=== PATIENT | female | born 1970 | race Caucasian/White ===

== ENCOUNTER 2017-08-25 10:17 | Emergency (ER) | payer SELFPAY ==
[~2017-08-25] VITALS: Ht 154.9 cm; Wt 48.1 kg
[~2017-08-25 10:17] MED LIST: ACET500T33 PO; HYDR-971 PO; IBUP800T19 PO; METR500T PO; SULF1TAB24 PO; excedrin pm PO
[2017-08-25 10:36] VITALS: BP 116/78
[2017-08-25] MEDS ORDERED: AMOX1TAB61 PO (10:39)
[2017-08-25] MEDS ORDERED: PRED50TA PO (10:39)
--- NOTE | 2017-08-25 10:45 | PHYS DOC ---
Past History Past Medical History: Bronchitis Past Surgical History: Oophorectomy, Other Smoking: Less than 1pk/day Alcohol Use: Sober Drug Use: Cocaine, Methamphetamine Adult General Chief Complaint Chief Complaint: SORE THROAT HPI HPI 46-year-old female presenting the emergency department with sore throat. This started last night. It is a burning sensation in the back of her throat that is nonradiating intermittent and without associated fever or chills. She denies difficulty breathing, drooling, tongue swelling, or restricted range of motion of the neck. Review of systems is negative for chest pain shortness of breath fevers chills neck stiffness headache. All other review of systems is negative unless otherwise noted in history of present illness. ED course: 46 year old female presenting the emergency department today with sore throat. Afebrile here with a normal heart rate. On examination she has swollen tonsils with erythema with minimal exudate. No peritonsillar abscess or deviation of the uvula. Normal range of motion of the neck. Otherwise well- appearing. Able to swallow secretions in the examination room. Heart and lungs are within normal limits. Given the amount of swelling and pretest probability for strep throat we will empirically treat with Augmentin and provided oral corticosteroids for the patient follow-up with her doctor in 2-3 days.The patient has been examined and was not found to have an emergency medical condition. The patient was then discharged home in stable condition. They were to return if their symptoms worsened or if they were concerned for any reason. [id number] discharge instructions and return precautions were given. Patient' s questions were answered to their satisfaction. Patient is comfortable with plan. Review of Systems Review of Systems SEE ABOVE. Allergies Allergies Allergies Coded Allergies Type Severity Reaction Last Updated Verified aspirin Allergy Intermediate pruritus 04/26/15 Yes Physical Exam Physical Exam SEE ABOVE Constitutional: Well developed, well nourished, no acute distress, non-toxic appearance. [] HENT: Normocephalic, atraumatic, bilateral external ears normal, oropharynx moist, see above. Mild anterior lymphadenopathy. Eyes: PERRLA, EOMI, conjunctiva normal, no discharge. [] Neck: Normal range of motion, no tenderness, supple, no stridor. [] Cardiovascular:Heart rate regular rhythm, no murmur [] Lungs & Thorax: Bilateral breath sounds clear to auscultation [] Abdomen: Bowel sounds normal, soft, no tenderness, no masses, no pulsatile masses. [] Skin: Warm, dry, no erythema, no rash. [] Back: No tenderness, no CVA tenderness. [] Extremities: No tenderness, no cyanosis, no clubbing, ROM intact, no edema. [] Neurologic: Alert and oriented X 3, normal motor function, normal sensory function, no focal deficits noted. [] Psychologic: Affect normal, judgement normal, mood normal. [] EKG EKG [] Radiology/Procedures Radiology/Procedures [] Course & Med Decision Making Course & Med Decision Making Pertinent Labs and Imaging studies reviewed. (See chart for details) [] Dragon Disclaimer Dragon Disclaimer This electronic medical record was generated, in whole or in part, using a voice recognition dictation system. Departure Departure: Impression: Primary Impression: Tonsillitis Additional Impression: Acute tonsillitis Disposition: HOME, SELF-CARE Condition: STABLE Referrals: PCP,TRISH (PCP) RAMO MAGALLON MD Patient Instructions: Sore Throat, Tonsillitis Additional Instructions: Thank you for allowing us to participate in your care today. Followup with your primary care physician in 3 days if your symptoms do not improve. Call your Primary Doctor tomorrow and inform them of your visit today. If you do not have a primary care provider you can ask for a list of our primary care providers. Return to the emergency department you have any new or concerning findings. This should be evaluated by the primary care physician and any necessary consulting services for continued management within a few days after discharge. Return to emergency room if you have any new or concerning symptoms including but not limited to fever, chills, nausea, vomiting, intractable pain, any new rashes, chest pain, shortness of air, uncontrolled bleeding, difficulty breathing, and/or vision loss. If at any time, you are having difficulty getting into your primary care doctor or a specialist, return to the emergency department. You may have been prescribed medication that can change in your level of thinking and ability to operate machinery. These medications include hydrocodone and Ativan. Also, Benadryl has been known to do this as well. Be sure to check with your pharmacist and ask if the medications you've prescribed can affect your level of consciousness. I recommend not operating heavy machinery or driving while on medication such as these. Scripts Prednisone (PREDNISONE) 50 Mg Tablet 1 TAB PO DAILY, #5 TAB Prov: SEBASTIEN JACKSON MD 08/25/17 Amoxicillin/Potassium Clav (AUGMENTIN 875-125 TABLET) 1 Each Tablet 1 TAB PO BID, #20 TAB Prov: SEBASTIEN JACKSON MD 08/25/17 Problem Qualifiers SEBASTIEN JACKSON MD August 25, 2017 10:45
[2017-08-25] MEDS ORDERED: AMOXICILLIN/K CLAV 875/125MG TABLET. PO ONE (11:00)
[2017-08-25] MEDS ORDERED: predniSONE 20 MG TABLET PO ONE (11:00)
[2017-08-25] MEDS ORDERED: IBUPROFEN 100 MG/5 ML ORAL.SUSP. PO ONE (11:00)
== END 2017-08-25 10:47 | disposition home or self-care (01) ==
LOC: ER 10:17
DX: J03.90 Acute tonsillitis, unspecified (principal); F17.200 Nicotine dependence, unspecified, uncomplicated; F14.10 Cocaine abuse, uncomplicated; F15.10 Other stimulant abuse, uncomplicated; Z88.6 Allergy status to analgesic agent
CPT/HCPCS: 99283

== ENCOUNTER → 2020-05-24 | Outpatient (CLI) | payer MEDICAID ==
[~2020-05-24] MED LIST changes: +AMOX1TAB61 PO; +HYDR-3165 PO; -HYDR-971 PO; +PRED50TA PO
--- NOTE | 2020-05-24 13:51 | RAD ---
Examination: Transabdominal and endovaginal pelvic ultrasound. INDICATION: Amenorrhea. LMP of 12/27/2019. . Patient reports a history of right oophorectomy. COMPARISON: No relevant comparisons TECHNIQUE: Transabdominal and endovaginal ultrasound of the pelvis was performed using grayscale and color Doppler imaging. Technologist reports that the patient's abdominal contour mimics the appearanc e of a gravid uterus. FINDINGS: Transabdominal ultrasound shows a large pelvic mass elevating the bowel loops measuring at least 12 c m in craniocaudal extent by 6 cm in anteroposterior extent. Its margins are not well defined but at i ts superior margin, peristalsing bowel loops are identified adjacent to it in the longitudinal plane. Endovaginal ultrasound shows an unremarkable cervix no suggestion of a small amount of fluid in the e ndometrial cavity. The uterine fundus is not well seen endovaginally. Neither ovary is identified. No pelvic free fluid. IMPRESSION: A large pelvic mass is difficult to distinguish from the uterine fundus and could represent an ovaria n neoplasm or neoplasm arising from the uterus such as a leiomyoma or leiomyosarcoma. Recommend contr ast enhanced abdomen and pelvis CT in further characterization. Electronically signed by: Tello Devries MD (05/24/2020 1:49 PM) [id number]
== END ==
LOC: US 12:56
PROVIDERS: ATTEND Obstetrics & Gynecology
DX: R19.09 Other intra-abdominal and pelvic swelling, mass and lump (principal); N91.1 Secondary amenorrhea
CPT/HCPCS: 76830; 76856